=== PATIENT | female | born 1975 | race Caucasian/White ===

== ENCOUNTER → 2017-05-24 16:33 | Outpatient (CLI) | payer OTHER ==
[~2017-05-24 16:33] MED LIST: CLARITIN 10 MG10 MG PO; GABAPENTIN100 MG; IBUPROFEN600 MG PO; MIRAPEX0.125 MG PO; MIRAPEX1 MG PO; MOBIC7.5 MG PO; MOTRIN600 MG PO; Mobic PO; NEURONTIN 300300 MG PO; OMEPRAZOLE40 MG PO; PERCOCET 5-3251 TAB PO; PERCOCET 5/3251 TA1 PO; PRILOSEC20 MG PO; SINGULAIR10 MG PO; SYNTHROID112 MCG PO; SYNTHROID150 MCG PO; TAMIFLU75 MG PO; VITAMIN D31000 UNI2 PO; ZANTAC150 MG PO; ZOFRAN ODT4 MG/UDTAB PO
[2017-05-25 20:10] VITALS: BMI 35.7
== END | disposition home or self-care (01) ==
LOC: D.MAMMO
DX: Z12.31 Encounter for screening mammogram for malignant neoplasm of breast (principal)

== ENCOUNTER 2017-05-24 21:06 | Inpatient (IN) | payer OTHER ==
[~2017-05-24 21:06] MED LIST changes: -OMEPRAZOLE40 MG PO
[2017-05-24 22:14] LABS: BASOPHILS 0.1 % (0-2); EOSINOPHILS 0.8 % (0-7); HEMATOCRIT 41.9 % (36.0-48.0); HEMOGLOBIN 14.2 g/dL (12-16); IMMATURE GRANULOCYTES 0.3 % (0-5); LYMPHOCYTES 10.6 % (15-50); MCH 31.2 pg (26.0-34.0); MCHC 33.9 g/dL (31.0-37.0); MCV 92.1 fL (80.0-100.0); MEAN PLATELET VOLUME 9.2 fL (7.4-10.4); MONOCYTES 6.1 % (2-11); NEUTROPHILS 82.1 % (40-80); PLATELET COUNT 328 10x3/uL (130-400); RBC 4.55 10x6/uL (4.00-5.40); RDW 12.9 % (11.5-14.5); WBC 14.5 10x3/uL (4.8-10.8)
[2017-05-24 22:18] LABS: INR 0.89 (0.85-1.17); PROTIME 11.9 SECONDS (11.6-15.0)
[2017-05-24 22:32] LABS: ALBUMIN 3.9 g/dL (3.4-5.0); ANION GAP 13.3 mmol/L (8-16); BILIRUBIN - TOTAL 0.39 mg/dL (0.2-1.3); CALCIUM 9.2 mg/dL (8.5-10.1); CARBON DIOXIDE 26.3 mmol/L (21.0-32.0); CREATININE - SERUM 1.1 mg/dL (0.6-1.3); POTASSIUM - SERUM 3.6 mmol/L (3.5-5.1); PROTEIN - SERUM 7.9 g/dL (6.4-8.2)
--- NOTE | 2017-05-25 20:06 | NUR ---
RECEIVED PT TO ROOM 2309 VIA STRETCHER ACCOMPANIED BY ER STAFF. ICU MONITORS ESTABLISHED, PT ALERT AND ORIENTED, ABLE TO ANSWER QUESTIONS APPROPRIATELY, HR SR ON CM, WILL REVIEW ORDERS.
[2017-05-25 20:10] VITALS: BP 98/56; BMI 35.7
[2017-05-25] MEDS ORDERED: OMEPRAZOLE40 MG PO (20:55)
[2017-05-25] MEDS ORDERED: NEURONTIN 300300 MG PO (20:55)
[2017-05-25] MEDS ORDERED: MIRAPEX1 MG PO (20:56)
[2017-05-25] MEDS ORDERED: SYNTHROID150 MCG PO (20:56)
[2017-05-25] MEDS ORDERED: MOBIC7.5 MG PO (20:57)
[2017-05-25 21:00] VITALS: BP 93/53
--- NOTE | 2017-05-25 21:50 | NUR ---
PT DAUGHTER AT BEDSIDE, PT VISITING IN NO APPARENT DISTRESS, ICE WATER PROVIDED PER REQUEST, VSS.
[2017-05-25 22:00] VITALS: BP 90/47
[2017-05-25 23:00] VITALS: BP 99/61
[2017-05-26] VITALS (9 sets, daily range): BP systolic 90–108; BP diastolic 45–78
--- NOTE | 2017-05-26 | NUR ---
PT AROUSES EASILY TO VOICE, REMAINS ORIENTED AT THIS TIME, BED LOW, CALL LIGHT IN REACH.
--- NOTE | 2017-05-26 02:30 | NUR ---
REASSESSMENT PER FLOWSHEET, NO ACUTE CHANGES NOTED AT THIS TIME. ASSISTED PT WITH PILLOWS TO COMFORTABLE POSITION, PT REMAINS ORIENTED X 4, WILL CONT POC.
--- NOTE | 2017-05-26 05:00 | NUR ---
NO VISITORS PRESENT AT THIS TIME, TOOTHBRUSH AND TOOTHPASTE PROVIDED PER REQUEST-PT DENIES NEED FOR ANY OTHER ASSISTANCE, BED LOW, CALL LIGHT IN REACH.
--- NOTE | 2017-07-03 13:25 | DS ---
PATIENT:AUTUMN SANCHEZ :71 MEDICAL RECORD: [id number] DISCHARGE SUMMARY ADMISSION DATE: 05/25/17 DISCHARGE DATE: 05/26/17 Ms. Sanchez was admitted to the Emergency Room and observed overnight on a clear liquid diet with serial neuro checks. She had no neurologic change and was performing ADLs. Upon discharge, she was discharged on a regular diet. She is to follow up with Dr. Nicole in 2 weeks with the lateral C-spine. Self follow up with ENT for possible nasal fracture. She is to follow up with Dr. Nicole for T7 compression fracture. She is instructed to have no lifting greater than 3 pounds, no bending or stooping. Wear cervical collar due to cervical pain and possible cervical spine fracture. Medications were hydrocodone as needed for pain as well as home medications. TRANSINT:[id number] Voice Confirmation ID: [id number] DOCUMENT ID: [id number] SOPHIA NICOLE MD at 1325 CC: [id number] DICTATION DATE: 06/26/17 1218 EXCHANGE ADMINISTRATOR: 06/27/17 0736 DIS IN 05/26/17 [id number] [place] [address]
== END 2017-05-26 13:15 | disposition home or self-care (01) | DRG 551 ==
LOC: D.ER 21:06 → D.ICU 05-25 16:41
PROVIDERS: Nurse Practitioner Family; ADMIT Neurological Surgery
PROC: 0CQ1XZZ Repair Lower Lip, External Approach (ICD-10-PCS; principal; 2017-05-25)
DX: S12.501A Unspecified nondisplaced fracture of sixth cervical vertebra, initial encounter for closed fracture (principal); S06.6X9A Traumatic subarachnoid hemorrhage with loss of consciousness of unspecified duration, initial encounter; S22.061A Stable burst fracture of T7-T8 vertebra, initial encounter for closed fracture; S02.32XA Fracture of orbital floor, left side, initial encounter for closed fracture; V80.010A Animal-rider injured by fall from or being thrown from horse in noncollision accident, initial encounter; S01.511A Laceration without foreign body of lip, initial encounter; R40.2412 Glasgow coma scale score 13-15, at arrival to emergency department

== ENCOUNTER → 2017-06-01 14:51 | Outpatient (CLI) | payer OTHER ==
[2015-01-18 15:16] VITALS: BMI 34.2
[~2017-06-01 14:51] MED LIST changes: +OMEPRAZOLE40 MG PO
== END | disposition home or self-care (01) ==
LOC: D.CT 14:51
DX: I60.9 Nontraumatic subarachnoid hemorrhage, unspecified (principal)

== ENCOUNTER 2018-04-24 16:50 | Inpatient (IN) | payer OTHER ==
[~2018-04-24] VITALS: Ht 152.4 cm; Wt 80.0 kg
--- NOTE | ~2018-04-24 | HP ---
PATIENT: AUTUMN SANCHEZ MEDICAL RECORD: [id number] ACCOUNT: [id number] LOCATION:[address] : 71 ADMISSION DATE: 04/24/18 PCP: INOCENCIO PRYOR MD HISTORY AND PHYSICAL EXAMINATION DATE OF ADMISSION: 04/24/2018. CHIEF COMPLAINT: Headaches, as well as fever. HISTORY OF PRESENT ILLNESS: The patient is a 42-year-old white female who states for the past 3 weeks, she has had intermittent fever as well as headache. She has been seen twice in [facility]. She was seen here on Sunday. The patient presented to the Emergency Room complaining of continued headaches as well as elevated temperature up to 102. The patient has developed nausea, it was felt that the patient warranted admission. PAST MEDICAL HISTORY: Significant that she has had asthma. She has also had joint pain, restless leg syndrome. She had a hysterectomy. She has had a colonoscopy. The patient is having no other symptoms at the present time. FAMILY HISTORY: Significant that mother and father are both living. SOCIAL HISTORY: The patient is . She has worked as a billing person in the past. Currently, works with [employer]. HABITS: She denies any ethanol, tobacco use or abuse. MEDICATIONS: Currently include levothyroxine 150 mcg once a day, Meloxicam 15 mg 1 p.o. every day, omeprazole 40 mg 1 p.o. day, Requip 1 mg p.o. q.h.s., Proventil HFA 90 mcg 2 puffs q.4 hours p.r.n. shortness of breath. ALLERGIES: Numerous which include AVELOX, CELEBREX, DEMEROL, SULFA, TRAMADOL. REVIEW OF SYSTEMS: CONSTITUTIONAL: The patient does report having intermittent headaches. She has had no other associated symptoms. She denies any change in visual or auditory acuity. CARDIOVASCULAR: She has had no chest pain, palpitations, PND or orthopnea. GASTROINTESTINAL: No chronic nausea, vomiting, melena, hematochezia. GENITOURINARY: No urgency, frequency, or dysuria. PHYSICAL EXAMINATION: VITAL SIGNS: In the Emergency Room, the patient's temperature was 100.6, her pulse was 120, respirations 16, and blood pressure 95/67, O2 sat is 97%. HEENT: Head is normocephalic. No lesions. Her ears TMs clear. Eyes: Pupils equal, round and reactive to light. Her extraocular movements are intact. Her nasal cavity, oral cavity, oropharynx clear. NECK: Supple. There is no adenopathy. No meningeal signs could be appreciated. HEART: Slightly tachycardic. No murmurs, gallops or rubs. LUNGS: Clear to auscultation. ABDOMEN: Soft, bowel sounds are positive. EXTREMITIES: The patient has no rashes. She has good strength, good range of motion of all extremities. HISTORY AND PHYSICAL [id number] [facility] DATA: The patient's white count initially was elevated at 18.8. She did have a left shift with 85.1% neutrophils. She had a D-dimer of 0.65. Sodium is 134, potassium 3.5, chloride is 100, CO2 is 25.6, BUN 7, creatinine of 1.1. Liver functions unremarkable. Cardiac enzymes unremarkable. She had negative flu swabs. The patient had a chest x-ray showing no cardiomegaly, no active infiltrates. She also had a CT scan of the head. CT scan of the head was unremarkable. ASSESSMENT: Fever of unknown origin as well as headaches, history of hypothyroidism. PLAN: The patient will be admitted. Blood culture will be obtained. Consult radiology for spinal tap. She will be placed on Rocephin 2 grams IV q.12 hours, also placed on doxycycline IV. The patient will have [place] spotted fever titer, ehrlichia titers, Lyme titers, blood cultures. We will continue to evaluate. TRANSINT:[id number] Voice Confirmation ID: [id number] DOCUMENT ID: [id number] INOCENCIO PRYOR MD at 0716 CC: [id number] DICTATION DATE: 04/25/18 0751 ROPEWALK ROPE MAKER: 04/25/18 0814 DIS IN 04/27/18 [id number] [place] [address]
--- NOTE | ~2018-04-24 | DS ---
PATIENT:AUTUMN SANCHEZ :71 MEDICAL RECORD: [id number] DISCHARGE SUMMARY ADMISSION DATE: 04/24/18 DISCHARGE DATE: 04/27/18 DATE OF ADMISSION: 04/24/2018 DATE OF DISCHARGE: 04/27/2018 ADMISSION DIAGNOSES: Fever of unknown origin and leukocytosis. DISCHARGE DIAGNOSES: Fever of unknown origin and leukocytosis. HOSPITAL COURSE: The patient presented to the Emergency Room with fever, chills, and white count elevated at 18,800. She had a headache. A CT of the head was negative. Underwent lumbar puncture, which was negative. Echocardiogram, no significant abnormalities. Blood cultures negative to date. All cultures negative to date. She had no rash. She was empirically placed on IV doxycycline and IV Rocephin. Rocephin has been tapered down. She has remained afebrile for the past several days. She is anxious to go home. The patient is discharged home in significantly improved condition. She will follow up with Dr. Paulino next week. PHYSICAL EXAMINATION: VITAL SIGNS ON DISCHARGE: Temperature 98.2, blood pressure 120/68, heart rate 57, respirations 18, O2 sat 98% room air. HEART: Regular rate and rhythm. LUNGS: Clear. ABDOMEN: Soft, nontender. Bowel sounds all 4 quadrants. EXTREMITIES: Present times 4. NEUROLOGIC: Intact. No focal deficits. SKIN: Warm and dry. No rash. LABORATORY DATA: CBC on discharge, white count 5, hemoglobin 12.1, hematocrit 35.3, platelets 336. The patient will be placed on oral doxycycline, pending results of tick disease titers, will follow up with Dr. Paulino next week. She had marginally low potassium, will provide 3 days of potassium supplementation orally. Again, discharge diagnoses were fever of unknown origin and leukocytosis, resolved. DISCHARGE PLAN: As above. TRANSINT:[id number] Voice Confirmation ID: [id number] DOCUMENT ID: [id number] DISCHARGE SUMMARY REPORT [id number] AUTUMN SANCHEZ CARLOS PETERS DO at 1030 CC: [id number] DICTATION DATE: 04/27/18 1339 PHYSICIST NUCLEAR: 04/28/18 0334 DIS IN 04/27/18 [place] [address]
[2018-04-24] MEDS ORDERED: VENTOLIN HFA18 GM INH (17:01)
[2018-04-24 17:23] LABS: BASOPHILS 0.2 % (0-2); EOSINOPHILS 0.2 % (0-7); HEMATOCRIT 41.5 % (36.0-48.0); HEMOGLOBIN 14.5 g/dL (12-16); IMMATURE GRANULOCYTES 0.3 % (0-5); LYMPHOCYTES 7.3 % (15-50); MCH 30.9 pg (26.0-34.0); MCHC 34.9 g/dL (31.0-37.0); MCV 88.3 fL (80.0-100.0); MEAN PLATELET VOLUME 8.7 fL (7.4-10.4); MONOCYTES 6.9 % (2-11); NEUTROPHILS 85.1 % (40-80); PLATELET COUNT 351 10x3/uL (130-400); RDW 12.4 % (11.5-14.5); WBC 18.8 10x3/uL (4.8-10.8)
[2018-04-24 17:48] LABS: ALBUMIN 2.9 g/dL (3.4-5.0); ALKALINE PHOSPHATASE 105 U/L (46-116); ALT (SGPT) 25 U/L (10-68); BILIRUBIN - TOTAL 0.57 mg/dL (0.2-1.3); CALC OSMOLALITY 266 mosm/kg (275-300); CALCIUM 8.7 mg/dL (8.5-10.1); CARBON DIOXIDE 25.6 mmol/L (21.0-32.0); CHLORIDE - SERUM 100 mmol/L (98-107); CREATININE - SERUM 1.2 mg/dL (0.6-1.3); GLUCOSE 121 mg/dL (74-106); POTASSIUM - SERUM 3.5 mmol/L (3.5-5.1); PROTEIN - SERUM 7.5 g/dL (6.4-8.2); SODIUM 134 mmol/L (136-145); UREA NITROGEN 7 mg/dL (7-18); eGFR NON AFRICAN AMERICAN 52 mL/min (90-120)
[2018-04-24 17:53] LABS: CKMB 0.1 U/L (0.0-3.6); CREATINE KINASE 95 UL (21-215)
[2018-04-24 17:58] LABS: TROPONIN-I < 0.017 ng/mL (0.000-0.060)
[2018-04-24 19:46] LABS: APPEARANCE CLEAR (CLEAR); BILIRUBIN NEGATIVE (NEGATIVE); COLOR YELLOW (YELLOW); GLUCOSE NEGATIVE (NEGATIVE); KETONE SMALL mg/dL (NEGATIVE); NITRITE NEGATIVE (NEGATIVE); PROTEIN TRACE mg/dL (NEGATIVE); UROBILINOGEN NORMAL (NORMAL)
[2018-04-24 23:53] VITALS: BP 93/61; Ht 152.4 cm; Wt 80.0 kg
[2018-04-25 04:57] LABS: BASOPHILS 0.3 % (0-2); EOSINOPHILS 1.5 % (0-7); HEMOGLOBIN 12.3 g/dL (12-16); IMMATURE GRANULOCYTES 0.3 % (0-5); LYMPHOCYTES 22.7 % (15-50); MCH 30.1 pg (26.0-34.0); MCHC 34.2 g/dL (31.0-37.0); MCV 88.2 fL (80.0-100.0); MONOCYTES 10.2 % (2-11); PLATELET COUNT 312 10x3/uL (130-400); RBC 4.08 10x6/uL (4.00-5.40); RDW 12.6 % (11.5-14.5)
[2018-04-25 05:02] LABS: WBC 10.3 10x3/uL (4.8-10.8)
[2018-04-25 05:17] LABS: ALBUMIN 2.4 g/dL (3.4-5.0); ANION GAP 3.9 mmol/L (8-16); BILIRUBIN - TOTAL 0.37 mg/dL (0.2-1.3); CARBON DIOXIDE 27.1 mmol/L (21.0-32.0); CREATININE - SERUM 0.9 mg/dL (0.6-1.3); PROTEIN - SERUM 6.1 g/dL (6.4-8.2)
[2018-04-25 06:30] VITALS: BP 102/62
[2018-04-25 08:19] VITALS: BP 100/59
[2018-04-25 11:52] VITALS: BP 102/54
[2018-04-25 12:42] LABS: GLUCOSE - CSF 45 MG/DL (40-75); PROTEIN - CSF 33 MG/DL (12-60)
[2018-04-25 13:10] LABS: APPEARANCE - CSF COLORLESS; RBC - CSF 0 cmm (0-0)
[2018-04-25 16:10] VITALS: BP 100/58
[2018-04-25 20:00] VITALS: BP 110/66
[2018-04-26] VITALS: BP 98/59
[2018-04-26 04:00] VITALS: BP 99/61
[2018-04-26 04:04] LABS: BASOPHILS 0.3 % (0-2); EOSINOPHILS 1.9 % (0-7); HEMATOCRIT 34.8 % (36.0-48.0); IMMATURE GRANULOCYTES 0.1 % (0-5); LYMPHOCYTES 23.6 % (15-50); MCH 30.6 pg (26.0-34.0); MCHC 34.5 g/dL (31.0-37.0); MCV 88.8 fL (80.0-100.0); MONOCYTES 6.7 % (2-11); NEUTROPHILS 67.4 % (40-80); PLATELET COUNT 352 10x3/uL (130-400); RBC 3.92 10x6/uL (4.00-5.40); RDW 12.7 % (11.5-14.5); WBC 7.8 10x3/uL (4.8-10.8)
[2018-04-26 04:15] LABS: ANION GAP 9.5 mmol/L (8-16); CALCIUM 8.2 mg/dL (8.5-10.1); CARBON DIOXIDE 25.2 mmol/L (21.0-32.0); POTASSIUM - SERUM 3.7 mmol/L (3.5-5.1)
[2018-04-26 09:00] VITALS: BP 91/45
[2018-04-26 16:00] VITALS: BP 102/51
[2018-04-26 20:02] VITALS: BP 97/61
[2018-04-27 00:35] VITALS: BP 101/66
[2018-04-27 05:30] LABS: BASOPHILS 0.4 % (0-2); EOSINOPHILS 3.2 % (0-7); HEMATOCRIT 35.3 % (36.0-48.0); HEMOGLOBIN 12.1 g/dL (12-16); IMMATURE GRANULOCYTES 0.2 % (0-5); LYMPHOCYTES 40.4 % (15-50); MCH 30.4 pg (26.0-34.0); MCHC 34.3 g/dL (31.0-37.0); MCV 88.7 fL (80.0-100.0); MEAN PLATELET VOLUME 8.8 fL (7.4-10.4); MONOCYTES 6.7 % (2-11); NEUTROPHILS 49.1 % (40-80); PLATELET COUNT 336 10x3/uL (130-400); RBC 3.98 10x6/uL (4.00-5.40); RDW 12.7 % (11.5-14.5)
[2018-04-27 05:44] LABS: POTASSIUM - SERUM 3.3 mmol/L (3.5-5.1)
[2018-04-27 05:56] LABS: ANION GAP 11.4 mmol/L (8-16); CALCIUM 8.3 mg/dL (8.5-10.1); CARBON DIOXIDE 21.9 mmol/L (21.0-32.0); CREATININE - SERUM 0.9 mg/dL (0.6-1.3)
[2018-04-27 06:19] VITALS: BP 102/82
[2018-04-27 07:42] VITALS: BP 118/63
[2018-04-27 12:35] VITALS: BP 120/68
[2018-04-27] MEDS ORDERED: VIBRAMYCIN 100100 MG PO (13:29)
[2018-04-27] MEDS ORDERED: K-DUR20 MEQ PO (13:30)
[2018-04-29 13:13] LABS: CRYPTO AG - CSF Negative (Negative)
[2018-04-29 14:18] LABS: EHRLICHIA CHAFF IGG Negative (Neg:<1:64); EHRLICHIA CHAFF IGM Negative (Neg:<1:20); HGE IGG TITER Negative (Neg:<1:64); HGE IGM TITER Negative (Neg:<1:20)
[2018-04-30 03:09] LABS: RMSF IGM 0.28 index (0.00-0.89)
[2018-05-02 10:22] LABS: F. TULARENSIS - IGG Negative (()); F. TULARENSIS - IGM Negative (())
[2018-05-06 07:09] LABS: VIRAL - RESULT No virus isolated. (())
== END 2018-04-27 14:30 | disposition home or self-care (01) | DRG 864 ==
LOC: D.ER 16:50 → D.M3 22:30
PROVIDERS: Family Medicine
PROC: 009U3ZZ Drainage of Spinal Canal, Percutaneous Approach (ICD-10-PCS; principal; 2018-04-25)
DX: R50.9 Fever, unspecified (principal); R51 Headache; D72.829 Elevated white blood cell count, unspecified; G25.81 Restless legs syndrome; R11.0 Nausea; R00.0 Tachycardia, unspecified